=== PATIENT | female | born 1950 | race Caucasian/White ===

== ENCOUNTER 2016-12-09 23:09 | Emergency (ER) | payer BC ==
[2016-12-10] MEDS ORDERED: Fluorescein Sodium TOPICAL* 1 MG TEST ONE (04:19)
[2016-12-10] MEDS ORDERED: Tetracaine 0.5% OPTH.SOL 4 ML* 1 DROP BTL ONE (04:19)
[2016-12-10 06:08] VITALS: BP 120/54
--- NOTE | 2016-12-13 14:14 | ED ---
Zackery Martinez Alfonso, scribed for Gia Schwartz MD on 12/10/16 at 0408 . Complex/Multi-Sys Presentation - HPI Summary HPI Summary: This patient is a 66 year old F presenting to [facility] with a chief complaint of left eye vision changes since yesterday. She states that there is a vertical yellow flash half-ortez arch in my left eye and it felt like there was a film over my (left) eye. These vision changes are intermittent 30 minute episodes. The patient rates the pain 5/10 in severity. Symptoms aggravated by blinking. Symptoms alleviated by spontaneous resolution. Patient reports left eye blurred vision. Patient denies sensation of a curtain across her eyes, CP, and SOB. PMHx includes cataracts. She denies PMHx of migraines.f - History Of Current Complaint Chief Complaint: EDEyeProblem Time Seen by Provider: 12/10/16 03:26 Hx Obtained From: Patient Onset/Duration: Sudden Onset, Lasting Days - yesterday, Still Present Timing: Intermittent, Lasting: - 30 minutes Severity Currently: None Severity Initially: Moderate Location: Pain At: - no pain, as per HPI, sxs in left eye Aggravating Factor(s): blinking Alleviating Factor(s): spontaneous resolution Associated Signs And Symptoms: Positive: Other - left eye blurred vision. Patient denies sensation of a curtain across her eyes, CP, and SOB - Allergies/Home Medications Allergies/Adverse Reactions: Allergies Allergy/AdvReac Type Severity Reaction Status Date / Time Codeine Allergy Shakes Verified 12/09/16 23:16 Tramadol [From Ultram] Allergy Numbness Verified 12/09/16 23:16 PMH/Surg Hx/FS Hx/Imm Hx Previously Healthy: Yes Sensory History: Reports: Hx Cataracts Opthamlomology History: Denies: Hx Legally Blind EENT History: Denies: Hx Deafness Neurological History: Denies: Hx Migraine - Surgical History Surgery Procedure, Year, and Place: no surgical hx Infectious Disease History: No - Family History Known Family History: Positive: Other - Negative eye disease - Social History Occupation: Employed Full-time Lives: With Family Alcohol Use: None Substance Use Type: Reports: None Smoking Status (MU): Never Smoked Tobacco Review of Systems Negative: Fever Positive: Blurred Vision - Left, Other - left eye vision changes; negative sensation of a curtain across her eyes Negative: Chest Pain Negative: Shortness Of Breath Skin: Negative Neurological: Negative Psychological: Normal All Other Systems Reviewed And Are Negative: Yes Physical Exam - Summary Physical Exam Summary: [facility] 20/20 bilat Triage Information Reviewed: Yes Vital Signs On Initial Exam: Initial Vitals Temp Pulse Resp BP Pulse Ox 98.1 F 72 18 156/86 96 12/09/16 23:12 12/09/16 23:12 12/09/16 23:12 12/09/16 23:12 12/09/16 23:12 Vital Signs Reviewed: Yes Appearance: Positive: Well-Appearing, Well-Nourished, Pain Distress Skin: Positive: Warm, Skin Color Reflects Adequate Perfusion Head/Face: Positive: Normal Head/Face Inspection Eyes: Positive: EOMI, GENIA, Conjunctiva Clear, Other: - Visual field by confrontation intact. Fundi disc sharp and flat. No hemorrhage. Tetracaine and fluorescein revealed no abrasion or foreign body. Lids everted and no FB noted .. Negative: Conjunctiva Inflammed ENT: Positive: Normal ENT inspection Neck: Positive: Supple, Nontender, Other: - no bruit Respiratory/Lung Sounds: Positive: Clear to Auscultation, Breath Sounds Present , Other - No respiratory distress Cardiovascular: Positive: RRR, Pulses are Symmetrical in both Upper and Lower Extremities, Other - Brisk capillary refill. Negative: Murmur Abdomen Description: Positive: Nontender, Soft Bowel Sounds: Positive: Present Musculoskeletal: Positive: Strength/ROM Intact Neurological: Positive: Sensory/Motor Intact, Alert, Oriented to Person Place, Time, CN Intact II-III, Normal Gait, Facial Symmetry, Speech Normal Psychiatric: Positive: Normal - [place] Coma Scale Coma Scale Total: 15 Diagnostics - Vital Signs Vital Signs Temp Pulse Resp BP Pulse Ox 12/09/16 23:12 98.1 F 72 18 156/86 96 - Laboratory Lab Statement: Any lab studies that have been ordered have been reviewed, and results considered in the medical decision making process. Re-Evaluation - Re-Evaluation First Eval Re-Evaluation Time: 05:00 - No eye sxs at this time. We discussed Dr. Richter recommendations Change: Improved Complex Multi-Symp Course/Dx Assessment/Plan: This patient is a 66 year old F presenting to [facility] with a chief complaint of left eye vision changes since yesterday. She states that there is a vertical yellow flash half-ortez arch in my left eye and it felt like there was a film over my (left) eye. These vision changes are intermittent 30 minute episodes. The patient rates the pain 5/10 in severity. Symptoms aggravated by blinking. Symptoms alleviated by spontaneous resolution. Patient reports left eye blurred vision. Patient denies sensation of a curtain across her eyes, CP, and SOB. PMHx includes cataracts. She denies PMHx of migraines. Consulted Dr. Richter (senior investment analyst) who states that the patient can follow up at their office this morning. Patient will be discharged with and follow up from Dr. Richter. The patient is agreeable with this plan. - Diagnoses Differential Diagnoses/HQI/PQRI: CVA, Other - migraine, retinal detachment, vitreous detachment Provider Diagnoses: Vitreous detachment of left eye - Physician Notifications Discussed Care Of Patient With: Phillip Richter Time Discussed With Above Provider: 04:53 Instructed by Provider To: Other - Consulted Dr. Richter (senior investment analyst) who states that the patient can follow up at their office this morning. Discharge - Discharge Plan Condition: Stable Disposition: HOME Patient Education Materials: Blurred Vision (ED) Forms: *Work Release Referrals: Shay KING,Lasha Vargas [Primary Care Provider] - Phillip Richter MD [Medical Doctor] - (THIS MORNING) Additional Instructions: WE HAVE SPOKEN WITH DR RICHTER TODAY AND HE WILL SEE YOU IN THE OFFICE TODAY. CALL THEIR OFFICE AT 0800 AND THEY WILL ARRANGE A TIME FOR YOU. WE USED TETRACAINE AND A FLUORESCENT STRIP TO EVALUATE YOUR EYE TODAY. RETURN TO THE ER IF YOU HAVE ANY NEW OR WORSENING SYMPTOMS. The documentation as recorded by the Zackery adams Alfonso accurately reflects the service I personally performed and the decisions made by , Gia Schwartz MD.
== END 2016-12-10 05:45 | disposition home or self-care (01) ==
LOC: ED 23:09
DX: H53.8 Other visual disturbances (principal); H43.812 Vitreous degeneration, left eye
CPT/HCPCS: 99282; A9270-GY